=== PATIENT | male | born 1955 | race Caucasian/White ===

== ENCOUNTER 2023-06-19 19:02 | Inpatient (IN) | payer OTHER ==
[~2023-06-19] VITALS: Ht 177.8 cm; Wt 74.0 kg
[2023-06-19 20:33] LABS: Basophils # (auto) 0 10 ^3/uL (0-0.2); Basophils % (auto) 0.4 % (0.0-2.0); Eosinophils # (auto) 0 10 ^3/uL (0-0.8); Eosinophils % (auto) 0.6 % (0.0-7.0); Hematocrit 39.1 % (41.0-53.0); Hemoglobin 12.6 g/dL (13.5-17.5); Lymphocytes # (auto) 0.9 10 ^3/uL (0.4-5.4); Lymphocytes % (auto) 15.4 % (10.0-50.0); Mean Corpuscular Hemoglobin 28.3 pg (28.0-32.0); Mean Corpuscular Hgb Conc. 32.2 g/dL (32.0-36.0); Mean Corpuscular Volume 87.8 fL (80.0-100.0); Monocytes # (auto) 0.5 10 ^3/uL (0-1.3); Monocytes % (auto) 7.7 % (0.0-12.0); Neutrophils # (auto) 4.6 10 ^3/uL (1.6-8.6); Neutrophils % (auto) 75.9 % (37.0-80.0); Nucleated Red Blood Cells % 0.2 %; Red Blood Cells 4.46 10^6/uL (4.5-5.90); White Blood Cell 6.1 10^3/uL (4.4-10.8)
[2023-06-19 20:54] LABS: Alanine Aminotransferase 19 U/L (7-40); Albumin 3.5 g/dL (3.2-4.8); Alkaline Phosphatase 90 U/L (46-116); Anion Gap 5 (5-15); Aspartate Aminotransferase 18 U/L (13-40); BUN/Creatinine Ratio 19.5 (10.0-20.0); Bilirubin, Total 0.5 mg/dL (0.2-1.0); Blood Urea Nitrogen 16 mg/dL (9-23); Calcium 10.9 mg/dL (8.5-10.1); Carbon Dioxide 27 mmol/L (20-30); Chloride 99 mmol/L (98-107); Glucose 114 mg/dL (74-106); Potassium 4.7 mmol/L (3.5-5.1); Sodium 131 mmol/L (136-145)
[2023-06-19] MEDS: ALBUTEROL SULF 2.5 MG/0.5ML(0.5%) NEB SOLN NEB ONE (21:01)
[2023-06-19] MEDS: IPRATROPIUM BROM 0.5 MG/2.5ML INH SOL NEB ONE (21:01)
[2023-06-20 01:29] VITALS: PULSE 111; RESP 18; O2SAT 92
[2023-06-20] MEDS: DexAMETHasone SOD PHOS 10MG/1ML VIAL INJ IV ONE (01:34)
[2023-06-20] MEDS: IPRATROPIUM BROM 0.5 MG/2.5ML INH SOL HHN ONE (01:45)
[2023-06-20] MEDS ORDERED: VANCOMYCIN PER PHARMACY 0 MG IV SCH (01:45)
[2023-06-20] MEDS ORDERED: ACETAMINOPHEN 325 MG TAB PO PRN ×2 (01:45→03:00)
[2023-06-20] MEDS: ALBUTEROL SULF 2.5 MG/0.5ML(0.5%) NEB SOLN HHN ONE (01:45)
[2023-06-20] MEDS: ACETAMINOPHEN 325 MG TAB PO ONE (02:09)
[2023-06-20] MEDS: SODIUM CHLORIDE 0.9% 1,000 ML IV ONE (02:11)
[2023-06-20] MEDS ORDERED: ONDANSETRON HCL 4 MG/2 ML VIAL IV PRN (03:00)
[2023-06-20] MEDS ORDERED: NITROGLYCERIN 0.4 MG SL TAB SL PRN (03:00)
[2023-06-20] MEDS ORDERED: IPRATROPIUM BROM 0.5 MG/2.5ML INH SOL NEB PRN (03:00)
[2023-06-20] MEDS ORDERED: TEMAZEPAM 15 MG CAP PO PRN (03:00)
[2023-06-20] MEDS ORDERED: ALBUTEROL SULF 2.5 MG/0.5ML(0.5%) NEB SOLN NEB PRN (03:00)
[2023-06-20] MEDS ORDERED: MORPHINE SULFATE INJ 2 MG/ml SYRG IV PRN (03:00)
[2023-06-20] MEDS: IOHEXOL 350 MG/ML 100ML IJ ONE (03:17)
[2023-06-20 04:00] VITALS: BP 124/64; PULSE 97; RESP 18; TEMP 97.9; O2SAT 92
[2023-06-20] MEDS: cefTRIAXone 1GM/50ML D5W 50 ML IV SCH (04:43)
[2023-06-20] MEDS: AZITHROMYCIN 500MG/ 250ML 250 ML IV SCH (05:16)
[2023-06-20] MEDS ORDERED: PIPERACILLIN-TAZOB 3.375GM 100 ML IV SCH (06:00)
[2023-06-20 09:57] VITALS: O2SAT 94
[2023-06-20] MEDS: methylPREDNISolone SOD SUCC 40 MG/ML VL IV SCH (10:35)
[2023-06-20] MEDS: ENOXAPARIN SOD 40 MG/0.4 ML SYRINGE SC SCH (10:35)
[2023-06-20 12:25] LABS: Urine Bacteria None Seen /hpf (None Seen)
[2023-06-20 12:50] LABS: Urine Blood Negative /uL (Negative); Urine Clarity Clear (Clear); Urine Color Yellow (Yellow); Urine Protein, UAD Negative (Negative); Urine Specific Gravity 1.037 (1.001-1.035); Urine Urobilinogen Normal (Negative); Urine WBC 1 /hpf (0 - 3); Urine pH 5.5 (5.0-9.0)
[2023-06-20 19:25] VITALS: PULSE 90; RESP 16; O2SAT 95
[2023-06-20 19:46] LABS: COVID19 ANTIGEN SOFIA FIA NEGATIVE (NEGATIVE); Rapid Influenza A Negative (Negative); Rapid Influenza B Negative (Negative)
[2023-06-20 21:47] VITALS: BP 138/78; PULSE 88; PULSE 89; RESP 18; TEMP 97.6; O2SAT 97
[2023-06-20] MEDS ORDERED: HYDR-4798 PO (22:54)
[2023-06-20] MEDS ORDERED: CLON-853 PO (22:54)
[2023-06-20] MEDS ORDERED: LISI20TA56 PO (22:54)
[2023-06-20] MEDS ORDERED: GABA-1250 PO (22:55)
[2023-06-21] VITALS (7 sets, daily range): BP systolic 119–160; BP diastolic 60–100; PULSE 71–100; RESP 17–20; TEMP 36.7; O2SAT 93–98
[2023-06-21] MEDS ORDERED: TIZA2CAP7 PO (05:09)
[2023-06-21 07:32] LABS: Basophils # (auto) 0 10 ^3/uL (0-0.2); Basophils % (auto) 0.1 % (0.0-2.0); Eosinophils # (auto) 0 10 ^3/uL (0-0.8); Hematocrit 36.6 % (41.0-53.0); Lymphocytes # (auto) 0.5 10 ^3/uL (0.4-5.4); Lymphocytes % (auto) 9.3 % (10.0-50.0); Mean Corpuscular Hemoglobin 28.6 pg (28.0-32.0); Mean Corpuscular Hgb Conc. 32.9 g/dL (32.0-36.0); Mean Corpuscular Volume 86.9 fL (80.0-100.0); Monocytes # (auto) 0.2 10 ^3/uL (0-1.3); Neutrophils # (auto) 4.5 10 ^3/uL (1.6-8.6); Neutrophils % (auto) 87.6 % (37.0-80.0); Nucleated Red Blood Cells % 0.3 %; Red Blood Cells 4.21 10^6/uL (4.5-5.90); Red Cell Distribution Width 17.9 % (11.8-14.3); White Blood Cell 5.2 10^3/uL (4.4-10.8)
[2023-06-21 07:45] LABS: Alanine Aminotransferase 16 U/L (7-40); Albumin 3.2 g/dL (3.2-4.8); Alkaline Phosphatase 77 U/L (46-116); Anion Gap 5 (5-15); Aspartate Aminotransferase 17 U/L (13-40); BUN/Creatinine Ratio 18.2 (10.0-20.0); Blood Urea Nitrogen 12 mg/dL (9-23); Carbon Dioxide 28 mmol/L (20-30); Chloride 98 mmol/L (98-107); Glucose 132 mg/dL (74-106); Magnesium 1.9 mg/dL (1.6-2.6); Potassium 4.2 mmol/L (3.5-5.1); Sodium 131 mmol/L (136-145)
[2023-06-21 07:46] LABS: Bilirubin, Total 0.4 mg/dL (0.2-1.0); Total Protein 5.2 g/dL (5.7-8.2)
[2023-06-21] MEDS: HYDROcodone-ACET 5/325MG TAB PO PRN (08:58)
[2023-06-21] MEDS ORDERED: TAPE100T24 PO (11:38)
[2023-06-21] MEDS ORDERED: METH4PAK PO (13:50)
[2023-06-21] MEDS ORDERED: AZITTAB PO (13:50)
[2023-06-22] MEDS ORDERED: AZITHROMYCIN 250 MG TAB PO SCH (10:00)
== END 2023-06-21 17:54 | disposition home or self-care (01) | DRG 177 ==
LOC: EDBD 19:02 → ER 19:02 → TELE 06-20 02:57 → TELE-WESTW 06-20 21:43
PROVIDERS: ADMIT Nurse Practitioner; ATTEND Internal Medicine Geriatric Medicine
DX: J15.69 Pneumonia due to other Gram-negative bacteria (principal); J96.21 Acute and chronic respiratory failure with hypoxia; J44.1 Chronic obstructive pulmonary disease with (acute) exacerbation; C34.91 Malignant neoplasm of unspecified part of right bronchus or lung; C34.92 Malignant neoplasm of unspecified part of left bronchus or lung; J44.0 Chronic obstructive pulmonary disease with (acute) lower respiratory infection; J15.9 Unspecified bacterial pneumonia; Z79.899 Other long term (current) drug therapy; E78.5 Hyperlipidemia, unspecified; Z87.891 Personal history of nicotine dependence
CPT/HCPCS: 36415; 36600; 71045; 71275; 80053; 81001; 82805; 83605; 83735; 83880; 84484; 85025; 85379; 87040; 87426; 87804; 94640; 96365; 96367; 96372; 96375; G0378; J1100